=== PATIENT | female | born 1945 | race Caucasian/White ===

== ENCOUNTER 2017-05-21 21:23 | Inpatient (IN) | payer OTHER ==
[~2017-05-21] VITALS: Ht 157.5 cm; Wt 78.7 kg
[2017-05-21 22:26] LABS: BASOPHIL (%) 0.2 % (0-1); EOSINOPHIL (%) 1.1 % (0-5); EOSINOPHIL COUNT 0.1 K/uL (0-0.3); HEMATOCRIT 32.3 % (36.0-46.0); HEMOGLOBIN 10.4 G/DL (11.9-15.5); IMMATURE GRANULOCYTE (%) 0.4 % (0.0-0.7); LYMPHOCYTE COUNT 0.9 K/uL (1.0-2.8); MCH 26.7 PG (29.0-34.0); MCHC 32.2 G/DL (30.0-36.0); MCV 82.8 FL (83-99); MONOCYTE (%) 6.8 % (3-12); MONOCYTE COUNT 0.4 K/uL (0-0.8); NEUTROPHIL (%) 74.5 % (45-76); NEUTROPHIL COUNT 4.1 K/uL (1.8-6.4); PLATELET COUNT 150 K/uL (156-360); RBC DIS.WIDTH-CV 15.6 % (11.8-14.6); RBC DIS.WIDTH-SD 47.1 % (39-53); WHITE BLOOD COUNT 5.5 K/uL (4.1-10.2)
[2017-05-21 22:34] LABS: PTT 31.7 SEC (25-37)
[2017-05-21 22:40] LABS: ALBUMIN 3.5 g/dL (3.2-4.8); CHLORIDE 96 mEq/L (99-109); POTASSIUM 4.6 mEq/L (3.7-5.4); SODIUM 128 mEq/L (136-147)
[2017-05-21 22:41] LABS: MAGNESIUM 2.1 mg/dL (1.3-2.7)
[2017-05-21 22:43] LABS: GLUCOSE 97 mg/dL (70-99); TOTAL PROTEIN 6.3 g/dL (6.4-8.3)
[2017-05-21 22:46] LABS: ALKALINE PHOSPHATASE 198 IU/L (3-129); CREATININE 1.6 mg/dL (0.6-1.3); GFR ESTIMATE (CALCULATED) 34 mL/min/
[2017-05-21 22:47] LABS: UREA NITROGEN (BUN) 19 mg/dL (9-23)
[2017-05-21 22:48] LABS: AST (GOT) 18 IU/L (2-34)
[2017-05-21 22:49] LABS: ALT (GPT) 15 IU/L (3-49); CREATINE KINASE 25 IU/L (1-294); TOTAL CK 25 IU/L (1-294)
[2017-05-21 22:53] LABS: TROP-I INTERPRETATION NEGATIVE; TROPONIN-I 0.01 ng/mL (0.0-0.30)
[2017-05-21] MEDS ORDERED: PHILLIPS'400 MG/5 M PO (23:55)
[2017-05-21] MEDS ORDERED: FLEET ENEMA-AD118 ML PR (23:55)
[2017-05-21] MEDS ORDERED: DULCOLAX10 MG PR (23:55)
[2017-05-21] MEDS ORDERED: SPIRIVA1 INHALATI IH (23:56)
[2017-05-21] MEDS ORDERED: BREO ELLIPTA I1 EACH IH (23:56)
[2017-05-21] MEDS ORDERED: ATORVASTATIN CA80 MG PO (23:57)
[2017-05-21] MEDS ORDERED: MIRALAX17 GM PO (23:57)
[2017-05-21] MEDS ORDERED: FENTANYL1 EAC4 TD (23:57)
[2017-05-21] MEDS ORDERED: CARVEDILOL6.25 MG PO (23:58)
[2017-05-21] MEDS ORDERED: BUPROPION XL150 MG PO (23:58)
[2017-05-21] MEDS ORDERED: DAILY VITE1 EAC1 PO (23:58)
[2017-05-21] MEDS ORDERED: IMDUR120 MG PO (23:59)
[2017-05-21] MEDS ORDERED: METHOCARBAMOL500 MG PO (23:59)
[2017-05-21] MEDS ORDERED: FOLIC ACID1 MG PO (23:59)
[2017-05-22] MEDS ORDERED: TRAZODONE HCL50 MG PO
[2017-05-22] MEDS ORDERED: LIDODERM 5% P1 PATCH TD
[2017-05-22] MEDS ORDERED: CARAFATE1 GM PO (00:01)
[2017-05-22] MEDS ORDERED: NEURONTIN100 MG PO (00:01)
[2017-05-22] MEDS ORDERED: MIRAPEX0.5 MG PO (00:02)
[2017-05-22] MEDS ORDERED: SENNA8.6 MG PO (00:03)
[2017-05-22] MEDS ORDERED: ERGOCALCIF50000 UNIT PO (00:04)
[2017-05-22] MEDS ORDERED: ADULT ASPIRIN R81 MG PO (00:04)
[2017-05-22] MEDS ORDERED: STOOL SOFTENER240 MG PO (00:04)
[2017-05-22] MEDS ORDERED: IRON325 M1 PO (00:05)
[2017-05-22] MEDS ORDERED: ARANESP40 MCG/0.4 SC (00:06)
[2017-05-22] MEDS ORDERED: TYLENOL REGULA325 MG PO ×2 (00:07→00:08)
[2017-05-22] MEDS ORDERED: ATIVAN0.5 MG PO (00:07)
[2017-05-22] MEDS ORDERED: DILAUDID2 MG PO ×2 (00:08→00:09)
[2017-05-22] MEDS ORDERED: ALBUTEROL2.5 MG/3 M IH (00:09)
[2017-05-22] MEDS ORDERED: PROAIR HFA8.5 GM IH (00:10)
[2017-05-22 01:04] LABS: APPEARANCE CLOUDY ((CLEAR)); BILIRUBIN NEGATIVE; BLOOD MODERATE; COLOR YELLOW ((YELLOW)); GLUCOSE (STRIP) NEGATIVE; KETONES NEGATIVE; LEUKOCYTES LARGE; NITRITE NEGATIVE; PROTEIN (STRIP) 100; SPECIFIC GRAVITY 1.011 (1.000-1.030); UROBILINOGEN 0.2 MG/DL (0.2-1.0)
[2017-05-22 01:14] LABS: AMPHETAMINE NEGATIVE (500 ng/mL); BARBITURATES NEGATIVE (200 ng/mL); BENZODIAZEPINES PRESUMPTIVE POSITIVE (150 ng/mL); BUPRENORPHINE NEGATIVE (10 ng/mL); COCAINE NEGATIVE (150 ng/mL); METHADONE NEGATIVE (200 ng/mL); METHAMPHETAMINE NEGATIVE (500 ng/mL); OPIATES (MORPHINE) PRESUMPTIVE POSITIVE (100 ng/mL); OXYCODONE NEGATIVE (100 ng/mL); PHENCYCLIDINE NEGATIVE (25 ng/mL); PROPOXYPHENE NEGATIVE (300 ng/mL); THC CANNABINOIDS NEGATIVE (50 ng/mL); TRICYCLIC ANTIDEPRESSANTS NEGATIVE (300 ng/mL)
[2017-05-22 01:27] LABS: UCUL ADDED? YES
[2017-05-22 01:36] VITALS: BP 130/76
[2017-05-22 04:13] LABS: BENZODIAZEPINES, URINE SCREEN Negative (200 ng/mL)
[2017-05-22 06:02] LABS: BASOPHIL (%) 0.4 % (0-1); EOSINOPHIL (%) 0.9 % (0-5); EOSINOPHIL COUNT 0.1 K/uL (0-0.3); HEMATOCRIT 28.2 % (36.0-46.0); HEMOGLOBIN 9.1 G/DL (11.9-15.5); IMMATURE GRANULOCYTE (%) 0.6 % (0.0-0.7); LYMPHOCYTE (%) 15.1 % (15-42); LYMPHOCYTE COUNT 0.8 K/uL (1.0-2.8); MCH 26.8 PG (29.0-34.0); MCHC 32.3 G/DL (30.0-36.0); MCV 83.2 FL (83-99); MONOCYTE (%) 6.7 % (3-12); MONOCYTE COUNT 0.4 K/uL (0-0.8); NEUTROPHIL (%) 76.3 % (45-76); NEUTROPHIL COUNT 4.1 K/uL (1.8-6.4); PLATELET COUNT 140 K/uL (156-360); RBC DIS.WIDTH-CV 15.4 % (11.8-14.6); RBC DIS.WIDTH-SD 46.8 % (39-53); RED BLOOD COUNT 3.39 M/uL (3.80-5.20); WHITE BLOOD COUNT 5.4 K/uL (4.1-10.2)
[2017-05-22 06:26] LABS: CHLORIDE 100 MEQ/L (99-109); CREATININE 1.4 MG/DL (0.6-1.3); GFR ESTIMATE (CALCULATED) 40 mL/min/; GLUCOSE 106 mg/dL (70-99); POTASSIUM 4.2 MEQ/L (3.7-5.4); SODIUM 132 MEQ/L (136-147); UREA NITROGEN (BUN) 18 mg/dL (9-23)
[2017-05-22 07:17] VITALS: BP 147/70
[2017-05-22 16:17] VITALS: BP 145/69
[2017-05-23] VITALS (7 sets, daily range): BP systolic 141–182; BP diastolic 69–107
[2017-05-23 06:00] LABS: BASOPHIL (%) 0.6 % (0-1); EOSINOPHIL COUNT 0.1 K/uL (0-0.3); HEMATOCRIT 31.2 % (36.0-46.0); HEMOGLOBIN 9.8 G/DL (11.9-15.5); IMMATURE GRANULOCYTE (%) 0.3 % (0.0-0.7); LYMPHOCYTE (%) 17.5 % (15-42); LYMPHOCYTE COUNT 1.1 K/uL (1.0-2.8); MCH 26.2 PG (29.0-34.0); MCHC 31.4 G/DL (30.0-36.0); MCV 83.4 FL (83-99); MONOCYTE (%) 6.4 % (3-12); MONOCYTE COUNT 0.4 K/uL (0-0.8); NEUTROPHIL (%) 73.2 % (45-76); NEUTROPHIL COUNT 4.7 K/uL (1.8-6.4); PLATELET COUNT 171 K/uL (156-360); RBC DIS.WIDTH-CV 15.5 % (11.8-14.6); RBC DIS.WIDTH-SD 46.5 % (39-53); RED BLOOD COUNT 3.74 M/uL (3.80-5.20); WHITE BLOOD COUNT 6.5 K/uL (4.1-10.2)
[2017-05-23 06:30] LABS: CHLORIDE 105 MEQ/L (99-109); CREATININE 1.4 MG/DL (0.6-1.3); GFR ESTIMATE (CALCULATED) 40 mL/min/; GLUCOSE 113 mg/dL (70-99); POTASSIUM 3.9 MEQ/L (3.7-5.4); SODIUM 136 MEQ/L (136-147); UREA NITROGEN (BUN) 13 mg/dL (9-23)
[2017-05-23 15:16] LABS: BASOPHIL (%) 0.4 % (0-1); EOSINOPHIL (%) 1.6 % (0-5); EOSINOPHIL COUNT 0.1 K/uL (0-0.3); HEMATOCRIT 30.8 % (36.0-46.0); HEMOGLOBIN 9.9 G/DL (11.9-15.5); IMMATURE GRANULOCYTE (%) 0.4 % (0.0-0.7); LYMPHOCYTE (%) 16.7 % (15-42); LYMPHOCYTE COUNT 1.2 K/uL (1.0-2.8); MCH 26.8 PG (29.0-34.0); MCHC 32.1 G/DL (30.0-36.0); MCV 83.5 FL (83-99); MONOCYTE (%) 8.7 % (3-12); MONOCYTE COUNT 0.6 K/uL (0-0.8); NEUTROPHIL (%) 72.2 % (45-76); NEUTROPHIL COUNT 5.1 K/uL (1.8-6.4); PLATELET COUNT 146 K/uL (156-360); RBC DIS.WIDTH-CV 15.3 % (11.8-14.6); RBC DIS.WIDTH-SD 47.1 % (39-53); RED BLOOD COUNT 3.69 M/uL (3.80-5.20)
[2017-05-23 15:36] LABS: TROP-I INTERPRETATION NEGATIVE; TROPONIN-I 0.03 ng/mL (0.0-0.30)
[2017-05-23 16:19] LABS: ALBUMIN 3.3 g/dL (3.2-4.8); CHLORIDE 105 mEq/L (99-109); POTASSIUM 3.6 mEq/L (3.7-5.4); SODIUM 135 mEq/L (136-147)
[2017-05-23 16:21] LABS: GLUCOSE 110 mg/dL (70-99)
[2017-05-23 16:23] LABS: TOTAL BILIRUBIN 0.9 mg/dL (0.0-1.0)
[2017-05-23 16:25] LABS: ALKALINE PHOSPHATASE 160 IU/L (3-129); CREATININE 1.4 mg/dL (0.6-1.3); GFR ESTIMATE (CALCULATED) 40 mL/min/
[2017-05-23 16:26] LABS: UREA NITROGEN (BUN) 10 mg/dL (9-23)
[2017-05-23 16:27] LABS: AST (GOT) 18 IU/L (2-34)
[2017-05-23 16:28] LABS: ALT (GPT) 13 IU/L (3-49)
[2017-05-23 22:15] LABS: TROP-I INTERPRETATION NEGATIVE; TROPONIN-I 0.04 ng/mL (0.0-0.30)
[2017-05-24] VITALS (10 sets, daily range): BP systolic 139–199; BP diastolic 80–100
[2017-05-24 09:14] LABS: BASOPHIL (%) 0.4 % (0-1); EOSINOPHIL (%) 3.3 % (0-5); EOSINOPHIL COUNT 0.2 K/uL (0-0.3); HEMATOCRIT 30.9 % (36.0-46.0); HEMOGLOBIN 9.9 G/DL (11.9-15.5); IMMATURE GRANULOCYTE (%) 0.6 % (0.0-0.7); LYMPHOCYTE (%) 17.5 % (15-42); LYMPHOCYTE COUNT 1.2 K/uL (1.0-2.8); MCH 27.1 PG (29.0-34.0); MCV 84.7 FL (83-99); MONOCYTE (%) 10.7 % (3-12); MONOCYTE COUNT 0.7 K/uL (0-0.8); NEUTROPHIL (%) 67.5 % (45-76); NEUTROPHIL COUNT 4.5 K/uL (1.8-6.4); PLATELET COUNT 151 K/uL (156-360); RBC DIS.WIDTH-CV 15.9 % (11.8-14.6); RBC DIS.WIDTH-SD 48.5 % (39-53); RED BLOOD COUNT 3.65 M/uL (3.80-5.20); WHITE BLOOD COUNT 6.7 K/uL (4.1-10.2)
[2017-05-24 09:42] LABS: CHLORIDE 110 MEQ/L (99-109); CREATININE 1.2 MG/DL (0.6-1.3); GFR ESTIMATE (CALCULATED) 47 mL/min/; GLUCOSE 134 mg/dL (70-99); POTASSIUM 3.9 MEQ/L (3.7-5.4); SODIUM 140 MEQ/L (136-147); UREA NITROGEN (BUN) 10 mg/dL (9-23)
[2017-05-24 09:55] LABS: TROP-I INTERPRETATION NEGATIVE; TROPONIN-I 0.04 ng/mL (0.0-0.30)
[2017-05-25 00:44] VITALS: BP 142/94
[2017-05-25 03:10] VITALS: BP 155/81
[2017-05-25 05:34] LABS: BASOPHIL (%) 0.7 % (0-1); EOSINOPHIL (%) 3.8 % (0-5); EOSINOPHIL COUNT 0.2 K/uL (0-0.3); HEMATOCRIT 30.1 % (36.0-46.0); HEMOGLOBIN 9.4 G/DL (11.9-15.5); IMMATURE GRANULOCYTE (%) 0.5 % (0.0-0.7); LYMPHOCYTE (%) 19.2 % (15-42); LYMPHOCYTE COUNT 1.2 K/uL (1.0-2.8); MCH 26.3 PG (29.0-34.0); MCHC 31.2 G/DL (30.0-36.0); MCV 84.3 FL (83-99); MONOCYTE (%) 10.4 % (3-12); MONOCYTE COUNT 0.6 K/uL (0-0.8); NEUTROPHIL (%) 65.4 % (45-76); NEUTROPHIL COUNT 3.9 K/uL (1.8-6.4); PLATELET COUNT 144 K/uL (156-360); RBC DIS.WIDTH-CV 15.4 % (11.8-14.6); RBC DIS.WIDTH-SD 47.2 % (39-53); RED BLOOD COUNT 3.57 M/uL (3.80-5.20)
[2017-05-25 06:12] LABS: CHLORIDE 109 MEQ/L (99-109); CREATININE 1.3 MG/DL (0.6-1.3); GFR ESTIMATE (CALCULATED) 43 mL/min/; GLUCOSE 127 mg/dL (70-99); SODIUM 139 MEQ/L (136-147); UREA NITROGEN (BUN) 8 mg/dL (9-23)
[2017-05-25 06:13] LABS: POTASSIUM 3.1 MEQ/L (3.7-5.4)
[2017-05-25 15:47] VITALS: BP 178/83
[2017-05-25 16:14] LABS: BASE EXCESS -1.9 mEq/L (-3 to +3); BICARBONATE 21.9 mEq/L (22-26); CARBOXY HGB 1.9 % (0-5); COMMENTS - BLOOD GASES A+C+; DEVICE NC; METHEMOGLOBIN 1.8 % (0-1.5); O2 FLOW 3 L/MIN; PCO2 33 mm Hg (35-45); PO2 102 mm Hg (80-100); SITE RR; TOTAL RESP RATE 28 resp/min; pH 7.43 (7.35-7.45)
[2017-05-26 00:13] VITALS: BP 155/75
[2017-05-26 06:16] LABS: BASOPHIL (%) 0.6 % (0-1); EOSINOPHIL (%) 5.9 % (0-5); EOSINOPHIL COUNT 0.3 K/uL (0-0.3); HEMOGLOBIN 9.8 G/DL (11.9-15.5); IMMATURE GRANULOCYTE (%) 0.2 % (0.0-0.7); LYMPHOCYTE (%) 21.4 % (15-42); LYMPHOCYTE COUNT 1.1 K/uL (1.0-2.8); MCH 26.7 PG (29.0-34.0); MCHC 31.6 G/DL (30.0-36.0); MCV 84.5 FL (83-99); MONOCYTE (%) 8.5 % (3-12); MONOCYTE COUNT 0.5 K/uL (0-0.8); NEUTROPHIL (%) 63.4 % (45-76); NEUTROPHIL COUNT 3.4 K/uL (1.8-6.4); PLATELET COUNT 153 K/uL (156-360); RBC DIS.WIDTH-CV 15.7 % (11.8-14.6); RBC DIS.WIDTH-SD 47.7 % (39-53); RED BLOOD COUNT 3.67 M/uL (3.80-5.20); WHITE BLOOD COUNT 5.3 K/uL (4.1-10.2)
[2017-05-26 06:46] LABS: CHLORIDE 111 MEQ/L (99-109); CREATININE 1.3 MG/DL (0.6-1.3); GFR ESTIMATE (CALCULATED) 43 mL/min/; GLUCOSE 115 mg/dL (70-99); POTASSIUM 3.5 MEQ/L (3.7-5.4); SODIUM 144 MEQ/L (136-147); UREA NITROGEN (BUN) 8 mg/dL (9-23)
[2017-05-26 07:01] VITALS: BP 159/83
[2017-05-26 09:05] LABS: INTER. NORMALIZED RATIO 1.2
[2017-05-26 09:20] LABS: HDL CHOLESTEROL 35 MG/DL (Desirable>=50); LDL CHOLESTEROL 50 mg/dL (Desirable<100); NON-HDL CHOLESTEROL 70 mg/dL (Desirable<160); TOTAL CHOLESTEROL 105 mg/dL (Desirable<200); TRIGLYCERIDES 100 MG/DL (Normal: <150)
[2017-05-26 09:24] LABS: TROP-I INTERPRETATION NEGATIVE; TROPONIN-I 0.03 ng/mL (0.0-0.30)
[2017-05-26 09:28] LABS: Estimated Average Glucose 88 mg/dL (70-123); HEMOGLOBIN A1c (GLYCOHEMOGLOB) 4.7 % HGB (Below 5.7)
[2017-05-26 10:33] LABS: C DIFF TOXIN NEGATIVE (NEGATIVE)
[2017-05-26 10:52] VITALS: BP 163/82
[2017-05-26 15:21] VITALS: BP 171/88
[2017-05-26 19:48] VITALS: BP 174/88
[2017-05-26 23:31] VITALS: BP 158/80
[2017-05-27 03:30] VITALS: BP 137/66
[2017-05-27 07:17] LABS: BASOPHIL (%) 0.6 % (0-1); EOSINOPHIL COUNT 0.4 K/uL (0-0.3); HEMATOCRIT 31.2 % (36.0-46.0); HEMOGLOBIN 9.8 G/DL (11.9-15.5); IMMATURE GRANULOCYTE (%) 0.2 % (0.0-0.7); LYMPHOCYTE (%) 24.5 % (15-42); LYMPHOCYTE COUNT 1.3 K/uL (1.0-2.8); MCH 27.3 PG (29.0-34.0); MCHC 31.4 G/DL (30.0-36.0); MCV 86.9 FL (83-99); MONOCYTE (%) 8.3 % (3-12); MONOCYTE COUNT 0.4 K/uL (0-0.8); NEUTROPHIL (%) 59.4 % (45-76); NEUTROPHIL COUNT 3.1 K/uL (1.8-6.4); PLATELET COUNT 142 K/uL (156-360); RBC DIS.WIDTH-CV 15.9 % (11.8-14.6); RBC DIS.WIDTH-SD 50.1 % (39-53); RED BLOOD COUNT 3.59 M/uL (3.80-5.20); WHITE BLOOD COUNT 5.3 K/uL (4.1-10.2)
[2017-05-27 07:39] LABS: CHLORIDE 113 MEQ/L (99-109); CREATININE 1.4 MG/DL (0.6-1.3); GFR ESTIMATE (CALCULATED) 40 mL/min/; GLUCOSE 96 mg/dL (70-99); POTASSIUM 3.8 MEQ/L (3.7-5.4); SODIUM 143 MEQ/L (136-147); UREA NITROGEN (BUN) 10 mg/dL (9-23)
[2017-05-27 08:03] VITALS: BP 174/96
[2017-05-27 12:01] VITALS: BP 183/93
[2017-05-27 15:51] VITALS: BP 148/92
[2017-05-27 16:38] LABS: TROP-I INTERPRETATION NEGATIVE; TROPONIN-I < 0.01 ng/mL (0.0-0.30)
[2017-05-27 19:42] VITALS: BP 185/89
[2017-05-28] VITALS (7 sets, daily range): BP systolic 136–187; BP diastolic 71–105
[2017-05-29 05:16] LABS: WHITE BLOOD COUNT 5.6 K/uL (4.1-10.2)
[2017-05-29 05:17] LABS: BASOPHIL (%) 0.7 % (0-1); EOSINOPHIL (%) 5.2 % (0-5); EOSINOPHIL COUNT 0.3 K/uL (0-0.3); HEMATOCRIT 31.8 % (36.0-46.0); HEMOGLOBIN 9.6 G/DL (11.9-15.5); IMMATURE GRANULOCYTE (%) 0.4 % (0.0-0.7); LYMPHOCYTE (%) 26.2 % (15-42); LYMPHOCYTE COUNT 1.5 K/uL (1.0-2.8); MCH 26.1 PG (29.0-34.0); MCHC 30.2 G/DL (30.0-36.0); MCV 86.4 FL (83-99); MONOCYTE (%) 8.3 % (3-12); MONOCYTE COUNT 0.5 K/uL (0-0.8); NEUTROPHIL (%) 59.2 % (45-76); NEUTROPHIL COUNT 3.3 K/uL (1.8-6.4); PLATELET COUNT 146 K/uL (156-360); RBC DIS.WIDTH-CV 15.7 % (11.8-14.6); RBC DIS.WIDTH-SD 49.5 % (39-53); RED BLOOD COUNT 3.68 M/uL (3.80-5.20)
[2017-05-29 05:42] LABS: CHLORIDE 113 MEQ/L (99-109); CREATININE 1.4 MG/DL (0.6-1.3); GFR ESTIMATE (CALCULATED) 40 mL/min/; GLUCOSE 100 mg/dL (70-99); POTASSIUM 3.4 MEQ/L (3.7-5.4); SODIUM 143 MEQ/L (136-147); UREA NITROGEN (BUN) 14 mg/dL (9-23)
[2017-05-29 07:41] VITALS: BP 179/92
[2017-05-29 11:38] VITALS: BP 164/79
[2017-05-29 16:00] VITALS: BP 160/89
[2017-05-29 20:15] VITALS: BP 175/90
[2017-05-30 00:10] VITALS: BP 161/80
[2017-05-30 04:00] VITALS: BP 166/92
[2017-05-30 07:11] VITALS: BP 169/79
[2017-05-30 11:01] VITALS: BP 177/84
[2017-05-31 00:16] VITALS: BP 172/90
[2017-05-31 07:06] VITALS: BP 182/86
[2017-05-31 15:11] VITALS: BP 147/78
[2017-05-31 23:27] VITALS: BP 158/85
[2017-06-01 07:15] VITALS: BP 163/96
[2017-06-01 11:50] LABS: CHLORIDE 113 MEQ/L (99-109); CREATININE 1.5 MG/DL (0.6-1.3); GFR ESTIMATE (CALCULATED) 37 mL/min/; GLUCOSE 165 mg/dL (70-99); POTASSIUM 4.1 MEQ/L (3.7-5.4); SODIUM 145 MEQ/L (136-147); UREA NITROGEN (BUN) 27 mg/dL (9-23)
[2017-06-01 15:35] VITALS: BP 154/91
[2017-06-02 00:45] VITALS: BP 161/87
[2017-06-02 07:05] LABS: BASOPHIL (%) 0.5 % (0-1); EOSINOPHIL (%) 3.4 % (0-5); EOSINOPHIL COUNT 0.2 K/uL (0-0.3); HEMATOCRIT 32.4 % (36.0-46.0); HEMOGLOBIN 10.2 G/DL (11.9-15.5); IMMATURE GRANULOCYTE (%) 0.3 % (0.0-0.7); LYMPHOCYTE (%) 22.1 % (15-42); LYMPHOCYTE COUNT 1.4 K/uL (1.0-2.8); MCH 27.1 PG (29.0-34.0); MCHC 31.5 G/DL (30.0-36.0); MCV 86.2 FL (83-99); MONOCYTE (%) 10.1 % (3-12); MONOCYTE COUNT 0.6 K/uL (0-0.8); NEUTROPHIL (%) 63.6 % (45-76); NEUTROPHIL COUNT 3.9 K/uL (1.8-6.4); PLATELET COUNT 167 K/uL (156-360); RBC DIS.WIDTH-CV 15.6 % (11.8-14.6); RBC DIS.WIDTH-SD 48.7 % (39-53); RED BLOOD COUNT 3.76 M/uL (3.80-5.20); WHITE BLOOD COUNT 6.1 K/uL (4.1-10.2)
[2017-06-02 07:31] LABS: CHLORIDE 114 MEQ/L (99-109); CREATININE 1.7 MG/DL (0.6-1.3); GFR ESTIMATE (CALCULATED) 32 mL/min/; POTASSIUM 3.7 MEQ/L (3.7-5.4); SODIUM 147 MEQ/L (136-147); UREA NITROGEN (BUN) 34 mg/dL (9-23)
[2017-06-02 07:32] LABS: GLUCOSE 118 mg/dL (70-99)
[2017-06-02 08:51] VITALS: BP 168/88
[2017-06-02] MEDS ORDERED: CARVEDILOL12.5 MG PO (15:09)
[2017-06-02] MEDS ORDERED: AMLODIPINE BESY10 MG PO (15:09)
[2017-06-02] MEDS ORDERED: LISINOPRIL10 MG PO (15:10)
[2017-06-02] MEDS ORDERED: LEVETIRACETAM750 MG PO (15:11)
[2017-06-02] MEDS ORDERED: LORAZEPAM0.5 MG PO (15:12)
[2017-06-02] MEDS ORDERED: FAMOTIDINE20 MG PO (15:13)
[2017-06-02] MEDS ORDERED: APRESOLINE25 MG PO (15:14)
[2017-06-02 16:32] VITALS: BP 179/81
== END 2017-06-02 18:35 | DRG 100 ==
LOC: EME → EDBD 21:23 → EDOF 05-22 00:36 → 5EAST 05-22 00:36 → 5SOUTH 05-22 00:36 → ENRESERV 05-22 00:37 → 5EAST 05-22 01:20 → ENRESERV 05-26 07:57 → 4WEST 05-26 09:43 → 5SOUTH 05-26 10:30
PROVIDERS: Emergency Medicine; Hospitalist; Internal Medicine; Nurse Practitioner Family
DX: G40.209 Localization-related (focal) (partial) symptomatic epilepsy and epileptic syndromes with complex partial seizures, not intractable, without status epilepticus (principal); J18.9 Pneumonia, unspecified organism; I13.0 Hypertensive heart and chronic kidney disease with heart failure and stage 1 through stage 4 chronic kidney disease, or unspecified chronic kidney disease; I50.22 Chronic systolic (congestive) heart failure; E87.1 Hypo-osmolality and hyponatremia; I63.9 Cerebral infarction, unspecified; G93.40 Encephalopathy, unspecified; Z95.2 Presence of prosthetic heart valve; Z95.0 Presence of cardiac pacemaker; E11.22 Type 2 diabetes mellitus with diabetic chronic kidney disease; I25.10 Atherosclerotic heart disease of native coronary artery without angina pectoris; Z87.891 Personal history of nicotine dependence; I25.2 Old myocardial infarction; F03.90 Unspecified dementia, unspecified severity, without behavioral disturbance, psychotic disturbance, mood disturbance, and anxiety; N18.3 Chronic kidney disease, stage 3 (moderate); I69.354 Hemiplegia and hemiparesis following cerebral infarction affecting left non-dominant side; D75.82 Heparin induced thrombocytopenia (HIT); E78.5 Hyperlipidemia, unspecified; D63.8 Anemia in other chronic diseases classified elsewhere; J43.9 Emphysema, unspecified; N39.0 Urinary tract infection, site not specified; Z98.61 Coronary angioplasty status; I27.20 Pulmonary hypertension, unspecified
CPT/HCPCS: 36600; 70450; 71010; 71045; 73502; 74230; 80048; 80053; 80061; 81003; 82550; 82553; 82803; 82948; 83036; 83605; 83735; 84484; 84999; 85025; 85025 91; 85610; 85730; 87040; 87077; 87086; 87186; 87493; 92526 GN; 92610 GN; 92611 GN; 93005; 93306; 93880; 94640; 94640 76; 94760; 94799; 95819; 97530 GO; 99202; 99281; 99285; A6214; C9113; J1644; J1652; J1815; J1953; J2060; J2543; J3480; J7042; J7050; S0028

== ENCOUNTER 2017-06-11 00:20 | Emergency (ER) | payer OTHER ==
[~2017-06-11] VITALS: Ht 165.1 cm; Wt 64.9 kg
[~2017-06-11 00:20] MED LIST: ADULT ASPIRIN R81 MG PO; ALBUTEROL2.5 MG/3 M IH; AMLODIPINE BESY10 MG PO; APRESOLINE25 MG PO; ARANESP40 MCG/0.4 SC; ATIVAN0.5 MG PO; ATORVASTATIN CA80 MG PO; BREO ELLIPTA I1 EACH IH; BUPROPION XL150 MG PO; CARAFATE1 GM PO; CARVEDILOL12.5 MG PO; CARVEDILOL6.25 MG PO; DAILY VITE1 EAC1 PO; DILAUDID2 MG PO; DULCOLAX10 MG PR; ERGOCALCIF50000 UNIT PO; FAMOTIDINE20 MG PO; FENTANYL1 EAC4 TD; FLEET ENEMA-AD118 ML PR; FOLIC ACID1 MG PO; IMDUR120 MG PO; IRON325 M1 PO; LEVETIRACETAM750 MG PO; LIDODERM 5% P1 PATCH TD; LISINOPRIL10 MG PO; LORAZEPAM0.5 MG PO; METHOCARBAMOL500 MG PO; MIRALAX17 GM PO; MIRAPEX0.5 MG PO; NEURONTIN100 MG PO; PHILLIPS'400 MG/5 M PO; PROAIR HFA8.5 GM IH; SENNA8.6 MG PO; SPIRIVA1 INHALATI IH; STOOL SOFTENER240 MG PO; TRAZODONE HCL50 MG PO; TYLENOL REGULA325 MG PO
[2017-06-11 01:53] LABS: BASOPHIL (%) 0.5 % (0-1); EOSINOPHIL (%) 4.8 % (0-5); EOSINOPHIL COUNT 0.4 K/uL (0-0.3); HEMATOCRIT 35.5 % (36.0-46.0); HEMOGLOBIN 11.2 G/DL (11.9-15.5); IMMATURE GRANULOCYTE (%) 0.3 % (0.0-0.7); LYMPHOCYTE (%) 21.1 % (15-42); LYMPHOCYTE COUNT 1.6 K/uL (1.0-2.8); MCH 27.2 PG (29.0-34.0); MCHC 31.5 G/DL (30.0-36.0); MCV 86.2 FL (83-99); MONOCYTE (%) 8.9 % (3-12); MONOCYTE COUNT 0.7 K/uL (0-0.8); NEUTROPHIL (%) 64.4 % (45-76); NEUTROPHIL COUNT 4.7 K/uL (1.8-6.4); PLATELET COUNT 144 K/uL (156-360); RBC DIS.WIDTH-CV 15.5 % (11.8-14.6); RBC DIS.WIDTH-SD 48.5 % (39-53); RED BLOOD COUNT 4.12 M/uL (3.80-5.20); WHITE BLOOD COUNT 7.3 K/uL (4.1-10.2)
[2017-06-11 02:02] LABS: ALBUMIN 3.9 g/dL (3.2-4.8); CHLORIDE 115 mEq/L (99-109); POTASSIUM 4.1 mEq/L (3.7-5.4); SODIUM 148 mEq/L (136-147)
[2017-06-11 02:03] LABS: MAGNESIUM 2.2 mg/dL (1.3-2.7)
[2017-06-11 02:05] LABS: GLUCOSE 131 mg/dL (70-99); TOTAL PROTEIN 6.6 g/dL (6.4-8.3)
[2017-06-11 02:07] LABS: TOTAL BILIRUBIN 1.1 mg/dL (0.0-1.0)
[2017-06-11 02:08] LABS: ALKALINE PHOSPHATASE 159 IU/L (3-129)
[2017-06-11 02:09] LABS: CREATININE 2.1 mg/dL (0.6-1.3); GFR ESTIMATE (CALCULATED) 25 mL/min/
[2017-06-11 02:10] LABS: AST (GOT) 20 IU/L (2-34); UREA NITROGEN (BUN) 36 mg/dL (9-23)
[2017-06-11 02:11] LABS: ALT (GPT) 17 IU/L (3-49)
[2017-06-11 02:57] LABS: APPEARANCE TURBID ((CLEAR)); BILIRUBIN NEGATIVE; BLOOD SMALL; COLOR AMBER ((YELLOW)); GLUCOSE (STRIP) NEGATIVE; KETONES NEGATIVE; LEUKOCYTES LARGE; NITRITE POSITIVE; PROTEIN (STRIP) 100; SPECIFIC GRAVITY 1.017 (1.000-1.030); UROBILINOGEN 0.2 MG/DL (0.2-1.0)
[2017-06-11 03:38] LABS: RED BLOOD CELLS 0-5 /HPF (0-5); WHITE BLOOD CELLS 40-50 /HPF (0-5)
[2017-06-11 03:39] LABS: BACTERIA 3+ /HPF; EPITHELIAL CELLS NONE SEEN /HPF; UCUL ADDED? YES
[2017-06-11 03:40] LABS: MUCUS NONE SEEN /LPF
[2017-06-11] MEDS ORDERED: LEVAQUIN750 MG PO (04:01)
[2017-06-11 05:15] VITALS: BP 129/80
== END 2017-06-11 05:15 ==
LOC: EME → EDBD 00:20 → EME 00:20
PROVIDERS: Emergency Medicine
DX: S72.001A Fracture of unspecified part of neck of right femur, initial encounter for closed fracture (principal); W06.XXXA Fall from bed, initial encounter; Y92.122 Bedroom in nursing home as the place of occurrence of the external cause; N39.0 Urinary tract infection, site not specified; M85.88 Other specified disorders of bone density and structure, other site; R91.8 Other nonspecific abnormal finding of lung field; K57.30 Diverticulosis of large intestine without perforation or abscess without bleeding; G20 Parkinson's disease; J44.9 Chronic obstructive pulmonary disease, unspecified; I10 Essential (primary) hypertension; Z90.710 Acquired absence of both cervix and uterus; Z79.82 Long term (current) use of aspirin
CPT/HCPCS: 73502; 74176; 80053; 81003; 83735; 85025; 87077; 87086; 87186; 99281; 99284

== ENCOUNTER → 2017-08-10 | Outpatient (CLI) | payer OTHER ==
[~2017-08-10] MED LIST changes: +LEVAQUIN750 MG PO
== END ==
LOC: RAD 07-31 09:30
DX: R13.11 Dysphagia, oral phase (principal); Z87.09 Personal history of other diseases of the respiratory system; Z87.01 Personal history of pneumonia (recurrent)
CPT/HCPCS: 74230; 92611 GN; G8996 GN CI; G8997 GN CI; G8998 GN CI

== ENCOUNTER 2017-08-16 19:48 | Inpatient (IN) | payer OTHER ==
[~2017-08-16] VITALS: Ht 157.5 cm; Wt 65.1 kg
[~2017-08-16 19:48] MED LIST changes: +COLACE100 MG PO; -IMDUR120 MG PO; +IMDUR60 MG PO; -STOOL SOFTENER240 MG PO
[2017-08-16 20:21] LABS: HEMATOCRIT 32.4 % (36.0-46.0); HEMOGLOBIN 10.7 G/DL (11.9-15.5); MCH 30.1 PG (29.0-34.0); PLATELET COUNT 108 K/uL (156-360); RBC DIS.WIDTH-CV 17.7 % (11.8-14.6); RBC DIS.WIDTH-SD 58.7 % (39-53); RED BLOOD COUNT 3.56 M/uL (3.80-5.20); WHITE BLOOD COUNT 11.8 K/uL (4.1-10.2)
[2017-08-16 20:31] LABS: CHLORIDE 100 mEq/L (99-109); SODIUM 143 mEq/L (136-147)
[2017-08-16 20:33] LABS: GLUCOSE 216 mg/dL (70-99)
[2017-08-16 20:35] LABS: POTASSIUM 5.3 mEq/L (3.7-5.4)
[2017-08-16 20:37] LABS: GFR ESTIMATE (CALCULATED) 22 mL/min/
[2017-08-16 20:41] LABS: TROP-I INTERPRETATION NEGATIVE; TROPONIN-I 0.07 ng/mL (0.0-0.30)
[2017-08-16 20:46] LABS: CREATININE 2.3 mg/dL (0.6-1.3); UREA NITROGEN (BUN) 63 mg/dL (9-23)
[2017-08-16 21:05] LABS: APPEARANCE TURBID ((CLEAR)); BILIRUBIN NEGATIVE; BLOOD MODERATE; COLOR AMBER ((YELLOW)); GLUCOSE (STRIP) NEGATIVE; KETONES NEGATIVE; LEUKOCYTES LARGE; NITRITE NEGATIVE; PROTEIN (STRIP) 100; SPECIFIC GRAVITY 1.014 (1.000-1.030); UROBILINOGEN 0.2 MG/DL (0.2-1.0)
[2017-08-16] MEDS ORDERED: APRESOLINE25 MG PO (21:16)
[2017-08-16] MEDS ORDERED: KEPPRA750 MG PO (21:18)
[2017-08-16] MEDS ORDERED: ACID CONTROLLER20 MG PO (21:23)
[2017-08-16 21:25] LABS: EPITHELIAL CELLS NONE SEEN /HPF; RED BLOOD CELLS 40-50 /HPF (0-5); WHITE BLOOD CELLS TNTC /HPF (0-5)
[2017-08-16 21:26] LABS: BACTERIA 4+ /HPF; MUCUS NONE SEEN /LPF; UCUL ADDED? YES
[2017-08-16] MEDS ORDERED: DUONEB 2.5-0.5 M3 ML AEROSOL ×2 (21:26→21:31)
[2017-08-16] MEDS ORDERED: LIDOCARE1 EACH TP (21:28)
[2017-08-16] MEDS ORDERED: BENTYL10 MG PO (21:34)
[2017-08-16] MEDS ORDERED: ROBAFEN CF SYR118 M1 PO (21:35)
[2017-08-16] MEDS ORDERED: ATIVAN0.5 MG PO (21:37)
[2017-08-16] MEDS ORDERED: BUSPAR5 MG PO (21:38)
[2017-08-16] MEDS ORDERED: K-DUR20 MEQ PO (21:40)
[2017-08-16] MEDS ORDERED: CARVEDILOL25 MG PO (21:41)
[2017-08-16] MEDS ORDERED: LANTUS 10100 UNITS/ SC (21:50)
[2017-08-16] MEDS ORDERED: AMLODIPINE BESY10 MG PO (21:51)
[2017-08-16] MEDS ORDERED: BREO ELLIPTA I1 EACH IH (21:53)
[2017-08-16] MEDS ORDERED: BUMEX1 MG PO (21:57)
[2017-08-17 02:53] VITALS: BP 135/86
[2017-08-17 05:47] LABS: HEMATOCRIT 30.1 % (36.0-46.0); HEMOGLOBIN 9.6 G/DL (11.9-15.5); MCHC 31.9 G/DL (30.0-36.0); MCV 90.9 FL (83-99); PLATELET COUNT 89 K/uL (156-360); RBC DIS.WIDTH-CV 17.6 % (11.8-14.6); RBC DIS.WIDTH-SD 58.2 % (39-53); RED BLOOD COUNT 3.31 M/uL (3.80-5.20); WHITE BLOOD COUNT 11.5 K/uL (4.1-10.2)
[2017-08-17 06:25] LABS: CREATININE 2.2 MG/DL (0.6-1.3); GFR ESTIMATE (CALCULATED) 23 mL/min/; GLUCOSE 218 mg/dL (70-99); POTASSIUM 5.1 MEQ/L (3.7-5.4); SODIUM 143 MEQ/L (136-147); UREA NITROGEN (BUN) 58 mg/dL (9-23)
[2017-08-17 06:26] LABS: CHLORIDE 104 MEQ/L (99-109)
[2017-08-17 07:24] VITALS: BP 176/79
[2017-08-17 09:49] LABS: LACTATE DEHYDROGENASE 333 IU/L (20-246); TOTAL PROTEIN 4.6 G/DL (6.4-8.3)
[2017-08-17 10:01] LABS: INTER. NORMALIZED RATIO 0.9
[2017-08-17 10:15] LABS: PTT 20.6 SEC (25-37)
[2017-08-17 12:13] LABS: TYPE OF FLUID THORACENTESIS
[2017-08-17 12:26] LABS: APPEARANCE CLOUDY-BLOODY; BODY FLUID RBC'S 870000 /MM^3 (0-100); BODY FLUID WBC'S 975 /MM^3 (0-500)
[2017-08-17 12:44] LABS: BODY FLUID EOSINOPHILS 0 % (0-25); COMMENT RARE MACROPHAGES SEEN; MONONUCLEAR WBC'S 13 %; POLYNUCLEAR WBC'S 87 % (0-25)
[2017-08-17 12:49] VITALS: BP 122/70
[2017-08-17 13:30] LABS: BODY FLUID GLUCOSE 353 MG/DL; BODY FLUID LDH 263 IU/L; BODY FLUID PROTEIN < 3.0 G/DL
[2017-08-17 15:30] VITALS: BP 129/82
[2017-08-17 19:00] VITALS: BP 137/78
[2017-08-17 23:30] VITALS: BP 117/64
[2017-08-18 03:00] VITALS: BP 122/73
[2017-08-18 05:37] LABS: BASOPHIL (%) 0 % (0-1); EOSINOPHIL (%) 0 % (0-5); HEMATOCRIT 28.2 % (36.0-46.0); HEMOGLOBIN 8.9 G/DL (11.9-15.5); LYMPHOCYTE (%) 2.9 % (15-42); LYMPHOCYTE COUNT 0.3 K/uL (1.0-2.8); MCH 28.3 PG (29.0-34.0); MCHC 31.6 G/DL (30.0-36.0); MCV 89.8 FL (83-99); MONOCYTE (%) 4.7 % (3-12); MONOCYTE COUNT 0.5 K/uL (0-0.8); NEUTROPHIL (%) 91.4 % (45-76); NEUTROPHIL COUNT 9.2 K/uL (1.8-6.4); PLATELET COUNT 96 K/uL (156-360); RBC DIS.WIDTH-CV 17.6 % (11.8-14.6); RBC DIS.WIDTH-SD 56.5 % (39-53); RED BLOOD COUNT 3.14 M/uL (3.80-5.20); WHITE BLOOD COUNT 10.1 K/uL (4.1-10.2)
[2017-08-18 05:58] LABS: ALBUMIN 2.4 G/DL (3.2-4.8); ALKALINE PHOSPHATASE 195 IU/L (3-129); ALT (GPT) 52 IU/L (3-49); AST (GOT) 31 IU/L (2-34); CHLORIDE 102 MEQ/L (99-109); CREATININE 2.5 MG/DL (0.6-1.3); DIRECT BILIRUBIN 0.3 mg/dL (0.0-0.3); GFR ESTIMATE (CALCULATED) 20 mL/min/; GLUCOSE 244 mg/dL (70-99); POTASSIUM 4.7 MEQ/L (3.7-5.4); SODIUM 142 MEQ/L (136-147); TOTAL BILIRUBIN 0.9 MG/DL (0.0-1.0); TOTAL PROTEIN 4.6 G/DL (6.4-8.3); UREA NITROGEN (BUN) 61 mg/dL (9-23)
[2017-08-18 10:40] VITALS: BP 98/56
[2017-08-18 11:29] VITALS: BP 143/84
[2017-08-18 12:14] VITALS: BP 98/63
[2017-08-18 12:37] LABS: GLUCOSE 332 mg/dL (70-99)
[2017-08-18 15:15] LABS: IRON 29 MCG/DL (35-150); TRANSFERRIN (TIBC) 155.4 mg/dL (215-380); TRANSFERRIN SATUR. 19 % (20-55)
[2017-08-18 19:30] VITALS: BP 115/60
[2017-08-18 23:20] VITALS: BP 97/51
[2017-08-19] VITALS (12 sets, daily range): BP systolic 101–133; BP diastolic 56–86
[2017-08-19 05:40] LABS: BASOPHIL (%) 0 % (0-1); EOSINOPHIL (%) 0 % (0-5); HEMATOCRIT 23.7 % (36.0-46.0); HEMOGLOBIN 7.5 G/DL (11.9-15.5); IMMATURE GRANULOCYTE (%) 0.5 % (0.0-0.7); LYMPHOCYTE (%) 2.4 % (15-42); LYMPHOCYTE COUNT 0.2 K/uL (1.0-2.8); MCH 28.7 PG (29.0-34.0); MCHC 31.6 G/DL (30.0-36.0); MCV 90.8 FL (83-99); MONOCYTE (%) 4.9 % (3-12); MONOCYTE COUNT 0.5 K/uL (0-0.8); NEUTROPHIL (%) 92.2 % (45-76); NEUTROPHIL COUNT 8.4 K/uL (1.8-6.4); PLATELET COUNT 69 K/uL (156-360); RBC DIS.WIDTH-CV 17.6 % (11.8-14.6); RED BLOOD COUNT 2.61 M/uL (3.80-5.20); WHITE BLOOD COUNT 9.2 K/uL (4.1-10.2)
[2017-08-19 06:08] LABS: ALBUMIN 2.1 G/DL (3.2-4.8); CHLORIDE 100 MEQ/L (99-109); CREATININE 2.8 MG/DL (0.6-1.3); GFR ESTIMATE (CALCULATED) 18 mL/min/; PHOSPHORUS 4.7 mg/dL (2.5-4.9); POTASSIUM 4.8 MEQ/L (3.7-5.4); SODIUM 137 MEQ/L (136-147); UREA NITROGEN (BUN) 71 mg/dL (9-23)
[2017-08-19 06:19] LABS: GLUCOSE 564 mg/dL (70-99)
[2017-08-19 12:09] LABS: HEMATOCRIT 21.4 % (36.0-46.0); MCV 91.1 FL (83-99)
[2017-08-19 12:10] LABS: HEMOGLOBIN 6.9 G/DL (11.9-15.5)
[2017-08-19 22:42] LABS: HEMOGLOBIN 10.2 G/DL (11.9-15.5)
[2017-08-20 02:45] LABS: HEMOGLOBIN 10.5 G/DL (11.9-15.5); MCV 86.5 FL (83-99)
[2017-08-20 02:58] LABS: ALBUMIN 2.3 g/dL (3.2-4.8)
[2017-08-20 02:59] LABS: CHLORIDE 100 mEq/L (99-109); POTASSIUM 4.2 mEq/L (3.7-5.4); SODIUM 138 mEq/L (136-147)
[2017-08-20 03:04] LABS: CREATININE 2.9 mg/dL (0.6-1.3); GFR ESTIMATE (CALCULATED) 17 mL/min/; PHOSPHORUS 3.9 mg/dL (2.5-4.9)
[2017-08-20 03:05] LABS: UREA NITROGEN (BUN) 78 mg/dL (9-23)
[2017-08-20 03:12] LABS: GLUCOSE 62 mg/dL (70-99)
[2017-08-20 03:42] VITALS: BP 100/57
[2017-08-20 08:22] VITALS: BP 107/72
[2017-08-20 11:11] VITALS: BP 124/81
[2017-08-20 11:44] LABS: HEMATOCRIT 31.2 % (36.0-46.0); HEMOGLOBIN 10.6 G/DL (11.9-15.5); MCV 88.4 FL (83-99)
[2017-08-20 13:56] LABS: BASE EXCESS 4.2 mEq/L (-3 to +3); BICARBONATE 30.9 mEq/L (22-26); CARBOXY HGB 3.1 % (0-5); METHEMOGLOBIN 1.6 % (0-1.5); PO2 52 mm Hg (80-100); pH 7.35 (7.35-7.45)
[2017-08-20 13:57] LABS: COMMENTS - BLOOD GASES A+C+; DEVICE NC; O2 FLOW 3 L/MIN; PCO2 56 mm Hg (35-45); SITE RR; TOTAL RESP RATE 20 resp/min
[2017-08-20 15:42] VITALS: BP 133/74
[2017-08-20 19:44] VITALS: BP 127/78
[2017-08-20 23:28] VITALS: BP 138/63
[2017-08-21 04:26] VITALS: BP 141/76
[2017-08-21 05:57] LABS: BASOPHIL (%) 0 % (0-1); EOSINOPHIL (%) 0.2 % (0-5); HEMATOCRIT 28.1 % (36.0-46.0); HEMOGLOBIN 9.4 G/DL (11.9-15.5); IMMATURE GRANULOCYTE (%) 0.5 % (0.0-0.7); LYMPHOCYTE (%) 1.8 % (15-42); LYMPHOCYTE COUNT 0.2 K/uL (1.0-2.8); MCH 29.4 PG (29.0-34.0); MCHC 33.5 G/DL (30.0-36.0); MCV 87.8 FL (83-99); MONOCYTE (%) 5.9 % (3-12); MONOCYTE COUNT 0.5 K/uL (0-0.8); NEUTROPHIL (%) 91.6 % (45-76); NEUTROPHIL COUNT 8.4 K/uL (1.8-6.4); RBC DIS.WIDTH-CV 16.3 % (11.8-14.6); RBC DIS.WIDTH-SD 51.3 % (39-53); WHITE BLOOD COUNT 9.2 K/uL (4.1-10.2)
[2017-08-21 06:38] LABS: CHLORIDE 101 MEQ/L (99-109); POTASSIUM 4.6 MEQ/L (3.7-5.4); SODIUM 135 MEQ/L (136-147)
[2017-08-21 06:44] LABS: CREATININE 2.9 MG/DL (0.6-1.3); GFR ESTIMATE (CALCULATED) 17 mL/min/; PHOSPHORUS 4.3 mg/dL (2.5-4.9); UREA NITROGEN (BUN) 77 mg/dL (9-23)
[2017-08-21 06:47] LABS: GLUCOSE 294 mg/dL (70-99)
[2017-08-21 07:06] LABS: PLAT.SUFFICIENCY DECREASED; PLATELET COUNT 53 K/uL (156-360)
[2017-08-21 07:25] VITALS: BP 121/75
[2017-08-21 10:05] VITALS: BP 100/60
[2017-08-21 15:21] VITALS: BP 112/72
[2017-08-21 20:24] VITALS: BP 118/73
[2017-08-22 00:55] VITALS: BP 102/64
[2017-08-22 03:59] VITALS: BP 106/64
[2017-08-22 05:44] LABS: BASOPHIL (%) 0.1 % (0-1); EOSINOPHIL (%) 0.3 % (0-5); HEMATOCRIT 25.6 % (36.0-46.0); HEMOGLOBIN 8.7 G/DL (11.9-15.5); IMMATURE GRANULOCYTE (%) 0.6 % (0.0-0.7); LYMPHOCYTE (%) 2.8 % (15-42); LYMPHOCYTE COUNT 0.3 K/uL (1.0-2.8); MCH 30.3 PG (29.0-34.0); MCV 89.2 FL (83-99); MONOCYTE (%) 6.5 % (3-12); MONOCYTE COUNT 0.7 K/uL (0-0.8); NEUTROPHIL (%) 89.7 % (45-76); NEUTROPHIL COUNT 9.2 K/uL (1.8-6.4); PLATELET COUNT 58 K/uL (156-360); RBC DIS.WIDTH-CV 16.8 % (11.8-14.6); RBC DIS.WIDTH-SD 53.1 % (39-53); RED BLOOD COUNT 2.87 M/uL (3.80-5.20); WHITE BLOOD COUNT 10.2 K/uL (4.1-10.2)
[2017-08-22 06:09] LABS: ALBUMIN 1.8 G/DL (3.2-4.8); CHLORIDE 101 MEQ/L (99-109); GFR ESTIMATE (CALCULATED) 16 mL/min/; GLUCOSE 85 mg/dL (70-99); PHOSPHORUS 3.9 mg/dL (2.5-4.9); SODIUM 136 MEQ/L (136-147); UREA NITROGEN (BUN) 77 mg/dL (9-23)
[2017-08-22 08:21] VITALS: BP 103/65
[2017-08-22 12:11] VITALS: BP 101/65
[2017-08-22 15:36] VITALS: BP 103/64
[2017-08-22 20:25] VITALS: BP 109/75
[2017-08-23] VITALS (7 sets, daily range): BP systolic 99–142; BP diastolic 57–97
[2017-08-23 04:15] LABS: APPEARANCE SL.HAZY ((CLEAR)); BILIRUBIN NEGATIVE; BLOOD SMALL; COLOR YELLOW ((YELLOW)); GLUCOSE (STRIP) 50; KETONES NEGATIVE; LEUKOCYTES TRACE; NITRITE NEGATIVE; PROTEIN (STRIP) 100; SPECIFIC GRAVITY 1.016 (1.000-1.030); UROBILINOGEN 0.2 MG/DL (0.2-1.0)
[2017-08-23 04:34] LABS: UR CREATININE CONCENTRATION 82.4 MG/DL
[2017-08-23 04:36] LABS: BACTERIA RARE /HPF; EPITHELIAL CELLS RARE /HPF; MUCUS NONE SEEN /LPF; RED BLOOD CELLS 0-5 /HPF (0-5); UCUL ADDED? NO; WHITE BLOOD CELLS 0-5 /HPF (0-5)
[2017-08-23 05:27] LABS: HEMATOCRIT 25.2 % (36.0-46.0); HEMOGLOBIN 8.5 G/DL (11.9-15.5); MCH 30.1 PG (29.0-34.0); MCHC 33.7 G/DL (30.0-36.0); MCV 89.4 FL (83-99); PLATELET COUNT 53 K/uL (156-360); RBC DIS.WIDTH-CV 16.7 % (11.8-14.6); RED BLOOD COUNT 2.82 M/uL (3.80-5.20); WHITE BLOOD COUNT 8.2 K/uL (4.1-10.2)
[2017-08-23 05:54] LABS: ALBUMIN 1.7 G/DL (3.2-4.8); CHLORIDE 99 MEQ/L (99-109); CREATININE 3.2 MG/DL (0.6-1.3); GFR ESTIMATE (CALCULATED) 15 mL/min/; GLUCOSE 204 mg/dL (70-99); PHOSPHORUS 4.6 mg/dL (2.5-4.9); POTASSIUM 4.5 MEQ/L (3.7-5.4); SODIUM 136 MEQ/L (136-147); UREA NITROGEN (BUN) 85 mg/dL (9-23)
[2017-08-24 04:34] VITALS: BP 110/66
[2017-08-24 05:49] LABS: ALBUMIN 1.8 G/DL (3.2-4.8); CHLORIDE 99 MEQ/L (99-109); CREATININE 3.6 MG/DL (0.6-1.3); GFR ESTIMATE (CALCULATED) 13 mL/min/; GLUCOSE 167 mg/dL (70-99); POTASSIUM 4.6 MEQ/L (3.7-5.4); SODIUM 136 MEQ/L (136-147); UREA NITROGEN (BUN) 96 mg/dL (9-23)
[2017-08-24 07:49] VITALS: BP 95/52
[2017-08-24 11:59] VITALS: BP 107/57
[2017-08-24 16:16] VITALS: BP 90/52
[2017-08-24 19:43] VITALS: BP 89/62
[2017-08-24 22:35] VITALS: BP 92/56
[2017-08-25 03:50] VITALS: BP 96/52
[2017-08-25 07:30] VITALS: BP 100/55
[2017-08-25 07:31] LABS: ALBUMIN 1.7 G/DL (3.2-4.8); CHLORIDE 100 MEQ/L (99-109); CREATININE 4.2 MG/DL (0.6-1.3); GFR ESTIMATE (CALCULATED) 11 mL/min/; GLUCOSE 168 mg/dL (70-99); PHOSPHORUS 5.5 mg/dL (2.5-4.9); SODIUM 136 MEQ/L (136-147)
[2017-08-25 07:33] LABS: UREA NITROGEN (BUN) 103 mg/dL (9-23)
[2017-08-25 11:21] VITALS: BP 98/62
[2017-08-25 16:44] VITALS: BP 91/53
[2017-08-25 21:01] VITALS: BP 97/59
[2017-08-26] VITALS (13 sets, daily range): BP systolic 96–108; BP diastolic 53–74
[2017-08-26 05:34] LABS: BASOPHIL (%) 0.1 % (0-1); EOSINOPHIL (%) 0 % (0-5); HEMATOCRIT 22.4 % (36.0-46.0); HEMOGLOBIN 7.4 G/DL (11.9-15.5); IMMATURE GRANULOCYTE (%) 0.5 % (0.0-0.7); LYMPHOCYTE COUNT 0.2 K/uL (1.0-2.8); MCH 29.4 PG (29.0-34.0); MCV 88.9 FL (83-99); MONOCYTE (%) 3.7 % (3-12); MONOCYTE COUNT 0.4 K/uL (0-0.8); NEUTROPHIL (%) 93.7 % (45-76); NEUTROPHIL COUNT 9.7 K/uL (1.8-6.4); RBC DIS.WIDTH-SD 54.7 % (39-53); RED BLOOD COUNT 2.52 M/uL (3.80-5.20); WHITE BLOOD COUNT 10.3 K/uL (4.1-10.2)
[2017-08-26 05:48] LABS: PLATELET COUNT 74 K/uL (156-360)
[2017-08-26 10:25] LABS: ALBUMIN 1.8 G/DL (3.2-4.8); CHLORIDE 99 MEQ/L (99-109); CREATININE 4.3 MG/DL (0.6-1.3); GFR ESTIMATE (CALCULATED) 11 mL/min/; GLUCOSE 57 mg/dL (70-99); PHOSPHORUS 6.3 mg/dL (2.5-4.9); POTASSIUM 5.4 MEQ/L (3.7-5.4); SODIUM 134 MEQ/L (136-147); UREA NITROGEN (BUN) 108 mg/dL (9-23)
[2017-08-27] VITALS (8 sets, daily range): BP systolic 90–114; BP diastolic 51–65
[2017-08-27 05:55] LABS: BASOPHIL (%) 0.1 % (0-1); EOSINOPHIL (%) 0 % (0-5); HEMATOCRIT 28.5 % (36.0-46.0); IMMATURE GRANULOCYTE (%) 0.8 % (0.0-0.7); LYMPHOCYTE (%) 1.4 % (15-42); LYMPHOCYTE COUNT 0.2 K/uL (1.0-2.8); MCH 28.8 PG (29.0-34.0); MCHC 33.3 G/DL (30.0-36.0); MCV 86.4 FL (83-99); MONOCYTE (%) 3.1 % (3-12); MONOCYTE COUNT 0.3 K/uL (0-0.8); NEUTROPHIL (%) 94.6 % (45-76); PLATELET COUNT 64 K/uL (156-360); RBC DIS.WIDTH-CV 16.3 % (11.8-14.6); WHITE BLOOD COUNT 10.6 K/uL (4.1-10.2)
[2017-08-27 05:57] LABS: HEMOGLOBIN 9.5 G/DL (11.9-15.5)
[2017-08-27 06:05] LABS: CHLORIDE 98 MEQ/L (99-109); CREATININE 4.8 MG/DL (0.6-1.3); GFR ESTIMATE (CALCULATED) 10 mL/min/; GLUCOSE 167 mg/dL (70-99); SODIUM 132 MEQ/L (136-147); UREA NITROGEN (BUN) 124 mg/dL (9-23)
[2017-08-27 19:03] LABS: CHLORIDE 100 MEQ/L (99-109); CREATININE 5.2 MG/DL (0.6-1.3); GFR ESTIMATE (CALCULATED) 9 mL/min/; GLUCOSE 144 mg/dL (70-99); POTASSIUM 4.9 MEQ/L (3.7-5.4); SODIUM 135 MEQ/L (136-147)
[2017-08-27 19:06] LABS: UREA NITROGEN (BUN) 130 mg/dL (9-23)
[2017-08-28 03:19] VITALS: BP 94/60
[2017-08-28 06:46] LABS: ALBUMIN 1.9 G/DL (3.2-4.8); CHLORIDE 101 MEQ/L (99-109); GFR ESTIMATE (CALCULATED) 11 mL/min/; GLUCOSE 191 mg/dL (70-99); PHOSPHORUS 7.1 mg/dL (2.5-4.9); POTASSIUM 4.6 MEQ/L (3.7-5.4); SODIUM 138 MEQ/L (136-147); UREA NITROGEN (BUN) 97 mg/dL (9-23)
[2017-08-28 06:51] LABS: CREATININE 4.2 MG/DL (0.6-1.3)
[2017-08-28 07:32] VITALS: BP 92/65
[2017-08-28 12:03] LABS: HEPATITIS B SURFACE ANTIGEN Nonreactive
[2017-08-28 12:34] LABS: HEPATITIS B SURFACE ANTIBODY EQUIVOCAL
[2017-08-28 15:23] VITALS: BP 84/50
[2017-08-28 20:15] VITALS: BP 111/70
[2017-08-29] VITALS (7 sets, daily range): BP systolic 99–114; BP diastolic 55–65
[2017-08-29 06:26] LABS: BASOPHIL (%) 0.1 % (0-1); EOSINOPHIL (%) 0 % (0-5); HEMATOCRIT 29.9 % (36.0-46.0); HEMOGLOBIN 10.1 G/DL (11.9-15.5); IMMATURE GRANULOCYTE (%) 0.5 % (0.0-0.7); LYMPHOCYTE (%) 1.9 % (15-42); LYMPHOCYTE COUNT 0.2 K/uL (1.0-2.8); MCH 29.9 PG (29.0-34.0); MCHC 33.8 G/DL (30.0-36.0); MCV 88.5 FL (83-99); MONOCYTE (%) 2.2 % (3-12); MONOCYTE COUNT 0.2 K/uL (0-0.8); NEUTROPHIL (%) 95.3 % (45-76); NEUTROPHIL COUNT 10.2 K/uL (1.8-6.4); RBC DIS.WIDTH-CV 16.8 % (11.8-14.6); RBC DIS.WIDTH-SD 54.4 % (39-53); RED BLOOD COUNT 3.38 M/uL (3.80-5.20); WHITE BLOOD COUNT 10.7 K/uL (4.1-10.2)
[2017-08-29 06:32] LABS: ALBUMIN 1.8 G/DL (3.2-4.8); CHLORIDE 101 MEQ/L (99-109); CREATININE 3.6 MG/DL (0.6-1.3); GFR ESTIMATE (CALCULATED) 13 mL/min/; GLUCOSE 213 mg/dL (70-99); PHOSPHORUS 6.4 mg/dL (2.5-4.9); POTASSIUM 5.1 MEQ/L (3.7-5.4); SODIUM 139 MEQ/L (136-147); UREA NITROGEN (BUN) 74 mg/dL (9-23)
[2017-08-29 08:27] LABS: IMM.PLATELET FRACTION 2.6 (1-7); PLAT.SUFFICIENCY DECREASED; PLATELET COUNT 49 K/uL (156-360)
[2017-08-30 04:37] VITALS: BP 99/61
[2017-08-30 08:41] VITALS: BP 101/57
[2017-08-30 11:11] VITALS: BP 98/58
[2017-08-30 16:12] VITALS: BP 101/55; BP 11/55
[2017-08-30 19:26] VITALS: BP 105/59
[2017-08-30 23:25] VITALS: BP 110/62
[2017-08-31 04:30] VITALS: BP 93/51
[2017-08-31 06:05] LABS: BASOPHIL (%) 0.1 % (0-1); EOSINOPHIL (%) 0 % (0-5); HEMATOCRIT 29.7 % (36.0-46.0); HEMOGLOBIN 9.5 G/DL (11.9-15.5); IMMATURE GRANULOCYTE (%) 0.6 % (0.0-0.7); LYMPHOCYTE (%) 1.3 % (15-42); LYMPHOCYTE COUNT 0.2 K/uL (1.0-2.8); MCH 28.7 PG (29.0-34.0); MCV 89.7 FL (83-99); MONOCYTE (%) 2.7 % (3-12); MONOCYTE COUNT 0.3 K/uL (0-0.8); NEUTROPHIL (%) 95.3 % (45-76); NEUTROPHIL COUNT 10.8 K/uL (1.8-6.4); RBC DIS.WIDTH-SD 55.5 % (39-53); RED BLOOD COUNT 3.31 M/uL (3.80-5.20); WHITE BLOOD COUNT 11.4 K/uL (4.1-10.2)
[2017-08-31 06:24] LABS: CHLORIDE 103 MEQ/L (99-109); CREATININE 3.8 MG/DL (0.6-1.3); GFR ESTIMATE (CALCULATED) 12 mL/min/; GLUCOSE 247 mg/dL (70-99); POTASSIUM 4.9 MEQ/L (3.7-5.4); SODIUM 140 MEQ/L (136-147); UREA NITROGEN (BUN) 75 mg/dL (9-23)
[2017-08-31 06:32] LABS: PLAT.SUFFICIENCY VERY DECREASED; PLATELET COUNT 46 K/uL (156-360)
[2017-08-31 09:04] VITALS: BP 100/56
[2017-08-31 15:29] VITALS: BP 110/66
[2017-08-31 22:16] VITALS: BP 128/71
[2017-09-01 00:55] VITALS: BP 115/72
[2017-09-01 04:47] VITALS: BP 110/70
[2017-09-01 05:55] LABS: ALBUMIN 2.6 G/DL (3.2-4.8); CHLORIDE 102 MEQ/L (99-109); GLUCOSE 167 mg/dL (70-99); PHOSPHORUS 5.4 mg/dL (2.5-4.9); SODIUM 140 MEQ/L (136-147); UREA NITROGEN (BUN) 50 mg/dL (9-23)
[2017-09-01 05:56] LABS: CREATININE 2.9 MG/DL (0.6-1.3); GFR ESTIMATE (CALCULATED) 17 mL/min/; POTASSIUM 3.9 MEQ/L (3.7-5.4)
[2017-09-01 08:31] VITALS: BP 133/78
[2017-09-01 12:52] VITALS: BP 123/57
[2017-09-01 15:57] VITALS: BP 136/66
[2017-09-01 20:00] VITALS: BP 131/85
[2017-09-02 00:10] VITALS: BP 102/65
[2017-09-02 04:12] VITALS: BP 99/65
[2017-09-02 06:35] LABS: BASOPHIL (%) 0 % (0-1); EOSINOPHIL (%) 0 % (0-5); HEMATOCRIT 28.5 % (36.0-46.0); HEMOGLOBIN 9.1 G/DL (11.9-15.5); IMM.PLATELET FRACTION 4.1 (1-7); IMMATURE GRANULOCYTE (%) 0.5 % (0.0-0.7); LYMPHOCYTE (%) 1.5 % (15-42); LYMPHOCYTE COUNT 0.1 K/uL (1.0-2.8); MCH 29.2 PG (29.0-34.0); MCHC 31.9 G/DL (30.0-36.0); MCV 91.3 FL (83-99); MONOCYTE (%) 3.1 % (3-12); MONOCYTE COUNT 0.3 K/uL (0-0.8); NEUTROPHIL (%) 94.9 % (45-76); NEUTROPHIL COUNT 7.8 K/uL (1.8-6.4); RBC DIS.WIDTH-SD 56.8 % (39-53); RED BLOOD COUNT 3.12 M/uL (3.80-5.20); WHITE BLOOD COUNT 8.3 K/uL (4.1-10.2)
[2017-09-02 06:37] LABS: ANISOCYTOSIS 2+; BURR CELLS 2+; MICROCYTOSIS 2+; OVALOCYTES 2+; PLAT.SUFFICIENCY VERY DECREASED; POIKILOCYTOSIS 2+
[2017-09-02 06:39] LABS: PLATELET COUNT 27 K/uL (156-360)
[2017-09-02 07:30] VITALS: BP 108/68
[2017-09-02 07:52] VITALS: BP 108/68
[2017-09-02 09:02] LABS: ALBUMIN 2.4 G/DL (3.2-4.8); CHLORIDE 103 MEQ/L (99-109); GFR ESTIMATE (CALCULATED) 14 mL/min/; GLUCOSE 152 mg/dL (70-99); PHOSPHORUS 6.9 mg/dL (2.5-4.9); POTASSIUM 4.3 MEQ/L (3.7-5.4); SODIUM 142 MEQ/L (136-147); UREA NITROGEN (BUN) 68 mg/dL (9-23)
[2017-09-02 09:03] LABS: CREATININE 3.5 MG/DL (0.6-1.3)
== END 2017-09-03 15:10 | DRG 682 ==
LOC: EME 19:48 → 4EAST 08-17 01:16 → EDOF 08-17 01:16 → ENRESERV 08-17 01:18 → 4EAST 08-17 02:43 → CANRESERV 09-02 18:31 → ENRESERV 09-02 18:31 → 4EAST 09-03 15:10
PROVIDERS: Emergency Medicine; Family Medicine; Internal Medicine; Internal Medicine Nephrology; Internal Medicine Pulmonary Disease; Radiology Diagnostic Radiology
PROC: 0W9B3ZX Drainage of Left Pleural Cavity, Percutaneous Approach, Diagnostic (ICD-10-PCS; 2017-08-17)
PROC: 0W9B30Z Drainage of Left Pleural Cavity with Drainage Device, Percutaneous Approach (ICD-10-PCS; 2017-08-18)
PROC: 30233N1 Transfusion of Nonautologous Red Blood Cells into Peripheral Vein, Percutaneous Approach (ICD-10-PCS; 2017-08-19)
PROC: 0BBP3ZX Excision of Left Pleura, Percutaneous Approach, Diagnostic (ICD-10-PCS; 2017-08-21)
PROC: 05HM33Z Insertion of Infusion Device into Right Internal Jugular Vein, Percutaneous Approach (ICD-10-PCS; principal; 2017-08-27)
PROC: 5A1D70Z Performance of Urinary Filtration, Intermittent, Less than 6 Hours Per Day (ICD-10-PCS; principal; 2017-08-27)
DX: N17.9 Acute kidney failure, unspecified (principal); J96.21 Acute and chronic respiratory failure with hypoxia; I13.0 Hypertensive heart and chronic kidney disease with heart failure and stage 1 through stage 4 chronic kidney disease, or unspecified chronic kidney disease; I50.42 Chronic combined systolic (congestive) and diastolic (congestive) heart failure; J91.8 Pleural effusion in other conditions classified elsewhere; E11.22 Type 2 diabetes mellitus with diabetic chronic kidney disease; N18.4 Chronic kidney disease, stage 4 (severe); R91.8 Other nonspecific abnormal finding of lung field; T38.0X5A Adverse effect of glucocorticoids and synthetic analogues, initial encounter; I82.622 Acute embolism and thrombosis of deep veins of left upper extremity; N39.0 Urinary tract infection, site not specified; E86.0 Dehydration; D75.82 Heparin induced thrombocytopenia (HIT); G93.40 Encephalopathy, unspecified; Z66 Do not resuscitate; Z51.5 Encounter for palliative care; E11.649 Type 2 diabetes mellitus with hypoglycemia without coma; E11.65 Type 2 diabetes mellitus with hyperglycemia; E87.5 Hyperkalemia; R59.0 Localized enlarged lymph nodes; I45.9 Conduction disorder, unspecified; D64.9 Anemia, unspecified; G20 Parkinson's disease; I42.9 Cardiomyopathy, unspecified; J44.9 Chronic obstructive pulmonary disease, unspecified; I69.354 Hemiplegia and hemiparesis following cerebral infarction affecting left non-dominant side; G40.109 Localization-related (focal) (partial) symptomatic epilepsy and epileptic syndromes with simple partial seizures, not intractable, without status epilepticus; I25.10 Atherosclerotic heart disease of native coronary artery without angina pectoris; K21.9 Gastro-esophageal reflux disease without esophagitis; M54.9 Dorsalgia, unspecified; G89.29 Other chronic pain; I25.2 Old myocardial infarction; Z87.891 Personal history of nicotine dependence; Z87.81 Personal history of (healed) traumatic fracture; Z95.0 Presence of cardiac pacemaker; Z95.3 Presence of xenogenic heart valve; Z95.5 Presence of coronary angioplasty implant and graft; Z90.710 Acquired absence of both cervix and uterus; Z80.1 Family history of malignant neoplasm of trachea, bronchus and lung; Z82.49 Family history of ischemic heart disease and other diseases of the circulatory system; Z82.5 Family history of asthma and other chronic lower respiratory diseases
CPT/HCPCS: 32557; 36600; 71045; 71046; 71250; 76942; 77012; 80048; 80048 91; 80069; 80076; 81003; 82570; 82803; 82945; 82948; 83540; 83615; 83615 91; 84155; 84157; 84300; 84466; 84484; 84999; 85014; 85018; 85025; 85027; 85610; 85730; 86706; 86850; 86900; 86901; 86920; 87070; 87075; 87077; 87086 GA; 87116; 87186; 87205; 87206; 87340; 87641; 88108; 89051; 92526 GN; 92610 GN; 93005; 93971; 94010; 94640; 94640 76; 94667; 94668; 94760; 94799; 99202; 99281; 99285; A6214; C1729; C1751; C1752; C1769; J0456; J0692; J0696; J1644; J1815; J1940; J1956; J2920; J2930; J7030; J7050; J7512; P9016; P9047